=== PATIENT | female | born 1995 | race Caucasian/White ===

== ENCOUNTER 2017-07-26 18:39 | Emergency (ER) | payer BC ==
[2017-07-26 21:08] LABS: ABS Basophils 0 10^3/ul (0-0.2); ABS Eosinophils 0.1 10^3/ul (0-0.6); ABS Lymphocytes 2.1 10^3/ul (1.0-4.8); ABS Monocytes 0.4 10^3/ul (0-0.8); ABS Nucleated RBC 0 10^3/ul; Eosinophil % 1.8 % (0-6); Hematocrit 43 % (35-47); Hemoglobin 14.9 g/dl (12.0-16.0); Lymphocyte % 37.2 % (25-47); Mean Corpuscular HGB Conc 35 g/dl (31-36); Mean Corpuscular Hemoglobin 30 pg (27-31); Mean Corpuscular Volume 87 fL (80-97); Mean Platelet Volume 9.9 um3 (7.4-10.4); Nucleated Red Blood Cells % 0; Platelet Count 207 10^3/ul (150-450); Red Blood Count 4.88 10^6/ul (4.0-5.4); Red Cell Distribution Width 13 % (10.5-15); White Blood Count 5.6 10^3/ul (3.5-10.8)
[2017-07-26 21:35] LABS: INR 1.03 (0.77-1.02)
--- NOTE | 2017-07-26 21:40 | RAD ---
INDICATION: Chest pain COMPARISON: None. TECHNIQUE: Single AP portable view of the chest was obtained. FINDINGS: Image quality is compromised due to the relative inferiority of a portable chest x-ray. The heart and mediastinum exhibit normal size and contour. The lungs are grossly clear. There is no evidence of a large pleural effusion. Visualized bones are normal for the patient's age. IMPRESSION: No radiographic evidence for acute cardiopulmonary abnormality on this portable chest x-ray.
[2017-07-26 22:06] VITALS: BP 106/78
--- NOTE | 2017-07-27 14:14 | ED ---
Abril Olsen Julia, scribed for Tio Mack on 07/26/17 at 2040 . HPI Chest Pain - HPI Summary HPI Summary: This patient is a 22 year old F presenting to [facility] with a chief complaint of sudden chest pain with SOB and palpitations described as a grab lasting for 45 seconds occurring twice earlier today. Patient reports a dull ache after initial onset. Patient rates pain 2/10. Patient Patient states that she has had these symptoms before for the past year. She states the symptoms have never been this severe and usually occur while she is relaxing. She states previous EKGs were normal. - History of Current Complaint Chief Complaint: EDChestPainROMI Time Seen by Provider: 07/26/17 20:14 Hx Obtained From: Patient Onset/Duration: Started Hours Ago, Resolved Timing: Lasting Minutes Pain Intensity: 2 Pain Scale Used: 0-10 Numeric Chest Pain Radiates: No Character: Other: - "grab" Associated Signs and Symptoms: Positive: Chest Pain, Shortness of Breath, Lightheadedness, Palpitations - Allergy/Home Medications Allergies/Adverse Reactions: Allergies Allergy/AdvReac Type Severity Reaction Status Date / Time Sulfa (Sulfonamide Allergy Unknown Verified 07/26/17 19:04 Antibiotics) Reaction Details oral contraceptives Allergy Severe See Comment Uncoded 07/26/17 19:04 PMH/Surg Hx/FS Hx/Imm Hx EENT History: Denies: Hx Deafness Psychiatric History: Reports: Hx Anxiety, Hx Depression, Hx Bipolar Disorder Infectious Disease History: No Infectious Disease History: Denies: Traveled Outside the [place] in Last 30 Days - Family History Known Family History: Positive: Cardiac Disease - heart murmur - mother, no [place], Hypertension - Social History Occupation: Student Alcohol Use: Occasionally Substance Use Type: Reports: None Smoking Status (MU): Never Smoked Tobacco Review of Systems Positive: Palpitations, Chest Pain Positive: Shortness Of Breath All Other Systems Reviewed And Are Negative: Yes Physical Exam - Summary Physical Exam Summary: Appearance: Well appearing, no pain distress Skin: warm, dry, reflects adequate perfusion Head/face: normal Eyes: EOMI, LEE ENT: normal Neck: supple, non-tender Respiratory: CTA, breath sounds present Cardiovascular: RRR, pulses symmetrical Abdomen: non-tender, soft Bowel: present Musculoskeletal: normal, strength/ROM intact Neuro: normal, sensory motor intact, A&Ox3 Triage Information Reviewed: Yes Vital Signs On Initial Exam: Initial Vitals Temp Pulse Resp BP Pulse Ox 99.3 F 94 18 126/77 100 07/26/17 19:05 07/26/17 19:05 07/26/17 19:05 07/26/17 19:05 07/26/17 19:05 Vital Signs Reviewed: Yes Diagnostics - Vital Signs Vital Signs Temp Pulse Resp BP Pulse Ox 07/26/17 19:05 99.3 F 94 18 126/77 100 - Laboratory Lab Results: Lab Results 07/26/17 07/26/17 07/26/17 Range/Units 20:25 20:25 20:25 WBC 5.6 (3.5-10.8) 10^3/ul RBC 4.88 (4.0-5.4) 10^6/ul Hgb 14.9 (12.0-16.0) g/dl Hct 43 (35-47) % MCV 87 (80-97) fL MCH 30 (27-31) pg MCHC 35 (31-36) g/dl RDW 13 (10.5-15) % Plt Count 207 (150-450) 10^3/ul MPV 9.9 (7.4-10.4) um3 Neut % (Auto) 53.6 (38-83) % Lymph % (Auto) 37.2 (25-47) % [place] % (Auto) 6.6 (0-7) % Eos % (Auto) 1.8 (0-6) % Baso % (Auto) 0.8 (0-2) % Absolute Neuts (auto) 3.0 (1.5-7.7) 10^3/ul Absolute Lymphs (auto) 2.1 (1.0-4.8) 10^3/ul Absolute Monos (auto) 0.4 (0-0.8) 10^3/ul Absolute Eos (auto) 0.1 (0-0.6) 10^3/ul Absolute Basos (auto) 0 (0-0.2) 10^3/ul Absolute Nucleated RBC 0 10^3/ul Nucleated RBC % 0 INR (Anticoag Therapy) 1.03 H (0.77-1.02) APTT 33.7 (26.0-36.3) seconds D-Dimer, Quantitative < 200 (Less Than 230) ng/mL Sodium (133-145) mmol/L Potassium (3.5-5.0) mmol/L Chloride (101-111) mmol/L Carbon Dioxide (22-32) mmol/L Anion Gap (2-11) mmol/L BUN (6-24) mg/dL Creatinine (0.51-0.95) mg/dL Est GFR ( Amer) (>60) Est GFR (Non-Af Amer) (>60) BUN/Creatinine Ratio (8-20) Glucose (70-100) mg/dL Lactic Acid (0.5-2.0) mmol/L Calcium (8.6-10.3) mg/dL Total Bilirubin (0.2-1.0) mg/dL AST (13-39) U/L ALT (7-52) U/L Alkaline Phosphatase (34-104) U/L Troponin I (<0.04) ng/mL B-Natriuretic Peptide 8 ( - 100) pg/mL Total Protein (6.4-8.9) g/dL Albumin (3.2-5.2) g/dL Globulin (2-4) g/dL Albumin/Globulin Ratio (1-3) 07/26/17 07/26/17 Range/Units 20:25 20:25 WBC (3.5-10.8) 10^3/ul RBC (4.0-5.4) 10^6/ul Hgb (12.0-16.0) g/dl Hct (35-47) % MCV (80-97) fL MCH (27-31) pg MCHC (31-36) g/dl RDW (10.5-15) % Plt Count (150-450) 10^3/ul MPV (7.4-10.4) um3 Neut % (Auto) (38-83) % Lymph % (Auto) (25-47) % [place] % (Auto) (0-7) % Eos % (Auto) (0-6) % Baso % (Auto) (0-2) % Absolute Neuts (auto) (1.5-7.7) 10^3/ul Absolute Lymphs (auto) (1.0-4.8) 10^3/ul Absolute Monos (auto) (0-0.8) 10^3/ul Absolute Eos (auto) (0-0.6) 10^3/ul Absolute Basos (auto) (0-0.2) 10^3/ul Absolute Nucleated RBC 10^3/ul Nucleated RBC % INR (Anticoag Therapy) (0.77-1.02) APTT (26.0-36.3) seconds D-Dimer, Quantitative (Less Than 230) ng/mL Sodium 140 (133-145) mmol/L Potassium 3.9 (3.5-5.0) mmol/L Chloride 102 (101-111) mmol/L Carbon Dioxide 31 (22-32) mmol/L Anion Gap 7 (2-11) mmol/L BUN 12 (6-24) mg/dL Creatinine 0.91 (0.51-0.95) mg/dL Est GFR ( Amer) 97.7 (>60) Est GFR (Non-Af Amer) 76.0 (>60) BUN/Creatinine Ratio 13.2 (8-20) Glucose 54 L (70-100) mg/dL Lactic Acid 1.1 (0.5-2.0) mmol/L Calcium 10.0 (8.6-10.3) mg/dL Total Bilirubin 0.50 (0.2-1.0) mg/dL AST 20 (13-39) U/L ALT 11 (7-52) U/L Alkaline Phosphatase 47 (34-104) U/L Troponin I 0.00 (<0.04) ng/mL B-Natriuretic Peptide ( - 100) pg/mL Total Protein 7.5 (6.4-8.9) g/dL Albumin 4.9 (3.2-5.2) g/dL Globulin 2.6 (2-4) g/dL Albumin/Globulin Ratio 1.9 (1-3) Result Diagrams: 07/26/17 20:25 07/26/17 20:25 Lab Statement: Any lab studies that have been ordered have been reviewed, and results considered in the medical decision making process. - Radiology CXR Radiology Interpretation Completed By: Radiologist - No radiographic evidence for acute cardiopulmonary abnormality on this portable chest x-ray. ED Physician has reviewed this report. - EKG 18:41 Cardiac Rate: NL - at 95 BPM EKG Rhythm: Sinus Rhythm EKG Interpretation: no acute changes Re-Evaluation - Re-Evaluation 1 Comment: Results discussed with patient. Patient will be discharged. Chest Pain Course/Dx - Course Course Of Treatment: Patient presents with chest pain with SOB and palpitations described as a grab lasting for 45 seconds occurring twice earlier today. Patient reports a dull ache after initial onset. Patient states that she has had these symptoms before for the past year. She states the symptoms have never been this severe and usually occur while she is relaxing. She states previous EKGs were normal. A CXR and EKG are unremarkable. Lab results are unremarkable. Patient is discharged and referred to a stitcher set up operator automatic. - Chest Pain Differential Diagnosis/HQI/PQRI: Acute [place], Chest Wall, Lower Respiratory Infection, Pulmonary Embolism - Diagnoses Provider Diagnoses: Chest pain Discharge - Sign-Out/Discharge Documenting (check all that apply): Discharge - Discharge Plan Condition: Stable Disposition: HOME Patient Education Materials: Chest Pain (ED) Referrals: Florian Green MD [Medical Doctor] - 3 Days (Follow up with this stitcher set up operator automatic.) - Billing Disposition and Condition Condition: STABLE Disposition: HOME The documentation as recorded by the Abril corrales Julia accurately reflects the service I personally performed and the decisions made by , Tio Mack.
== END 2017-07-26 22:04 | disposition home or self-care (01) ==
LOC: ED 18:39
DX: R07.9 Chest pain, unspecified (principal); R06.02 Shortness of breath; R00.2 Palpitations; F41.9 Anxiety disorder, unspecified; F31.9 Bipolar disorder, unspecified; Z79.899 Other long term (current) drug therapy
CPT/HCPCS: 36415; 71045; 80053; 83605; 83880; 84484; 85025; 85379; 85610; 85730; 93005; 99284

== ENCOUNTER 2018-10-19 10:02 | Emergency (ER) | payer BC ==
[2018-10-19] MEDS ORDERED: NS 0.9% 1000 ML** 1,000 ML IV ONE (10:46)
--- NOTE | 2018-10-19 11:10 | ED ---
Abdominal Pain/Female - HPI Summary HPI Summary: The patient is a 23 y/o F presenting to [facility] with a chief complaint of sudden onset epigastric pain onset within the last hour. She reports she was at rest when the pain started. The pain began as a sharp and stabbing pain, but has relieved itself to a more dull pain that is currently rated 3/10 in severity. There are no aggravating oo alleviating factors. She attempted to use TUMS to relieve the pain, but the pain persisted. She additionally c/o nausea and sinus congestion. She denies vomiting. She notes that she had GERD episodes a few time when she was younger, but she hasn't had any flare ups recently. Hx of recurrent bronchitis. No related fhx. Nonsmoker, occasional EtOH, no substance use. LNMP: unknown due to IUD. - History of Current Complaint Chief Complaint: EDAbdPain Stated Complaint: ABDOMINAL PAIN PER PT Time Seen by Provider: 10/19/18 10:59 Hx Obtained From: Patient Onset/Duration: Sudden Onset, Lasting Minutes, Still Present Timing: Minutes Severity Initially: Severe Severity Currently: Mild Pain Intensity: 3 Pain Scale Used: 0-10 Numeric Location: Epigastric Radiates: No Character: Sharp - and stabbing (at onset), Dull - (currently) Aggravating Factor(s): Nothing Alleviating Factor(s): Nothing - Tums to no relief Associated Signs and Symptoms: Positive: Nausea, Other: - sinus congestion. Negative: Vomiting Allergies/Adverse Reactions: Allergies Allergy/AdvReac Type Severity Reaction Status Date / Time Sulfa (Sulfonamide Allergy Unknown Verified 10/19/18 10:13 Antibiotics) Reaction Details oral contraceptives Allergy Severe See Comment Uncoded 06/17/18 12:57 Home Medications: Home Medications lamoTRIgine TAB(*) [Lamictal TAB(*)] 75 mg PO BEDTIME 10/19/18 [History Confirmed 10/19/18] PMH/Surg Hx/FS Hx/Imm Hx Endocrine/Hematology History: Denies: Hx Diabetes Cardiovascular History: Denies: Hx Hypercholesterolemia, Hx Hypertension Respiratory History: Reports: Other Respiratory Problems/Disorders - Recurrent bronchitis Sensory History: Denies: Hx Deafness Psychiatric History: Reports: Hx Anxiety, Hx Depression, Hx Bipolar Disorder - Surgical History Surgical History: None Surgery Procedure, Year, and Place: none Infectious Disease History: No Infectious Disease History: Denies: Traveled Outside the [place] in Last 30 Days - Family History Known Family History: Positive: Cardiac Disease - heart murmur - mother, no [place], Hypertension Negative: Diabetes - Social History Alcohol Use: Occasionally Hx Substance Use: No Substance Use Type: Reports: None Hx Tobacco Use: No Smoking Status (MU): Never Smoked Tobacco Do You Chew or Dip Tobacco: No Have You Chewed or Dipped Tobacco in the LAST YEAR: No Have You Smoked in the Last Year: No Review of Systems Positive: Other - sinus congestion Positive: Abdominal Pain - epigastric, sharp and stabbing pain, Nausea. Negative: Vomiting All Other Systems Reviewed And Are Negative: Yes Physical Exam - Summary Physical Exam Summary: VITAL SIGNS: Reviewed. GENERAL: Patient is a well-developed and nourished female who is lying comfortable in the stretcher. Patient is not in any acute respiratory distress. HEAD AND FACE: Normocephalic and atraumatic. EYES: PERRLA, EOMI x 2, No injected conjunctiva. EARS: Hearing grossly intact. Ear canals and tympanic membranes are WNL. MOUTH: Oropharynx within normal limits. NECK: Supple, trachea is midline, no adenopathy, no JVD. CHEST: Symmetric, no tenderness at palpation LUNGS: Clear to auscultation bilaterally. No wheezing or crackles. CVS: RRR, S1 and S2 present, no murmurs or gallops appreciated. ABDOMEN: Soft, epigastric tenderness. No signs of distention. Positive bowel sounds. No rebound no guarding, and no masses palpated. No abdominal bruit or pulsations. EXTREMITIES: FROM in all major joints, no edema, no cyanosis or clubbing. NEURO: Alert and oriented x 3. No acute neurological deficits. Speech is normal. SKIN: Dry and warm. Triage Information Reviewed: Yes Vital Signs On Initial Exam: Initial Vitals Temp Pulse Resp BP Pulse Ox 98.9 F 93 16 124/82 98 10/19/18 10:11 10/19/18 10:11 10/19/18 10:11 10/19/18 10:11 10/19/18 10:11 Vital Signs Reviewed: Yes Diagnostics - Vital Signs Vital Signs Temp Pulse Resp BP Pulse Ox 10/19/18 10:11 98.9 F 93 16 124/82 98 - Laboratory Result Diagrams: 10/19/18 11:00 10/19/18 11:00 Lab Statement: Any lab studies that have been ordered have been reviewed, and results considered in the medical decision making process. - CT Abd/Pel CT CT Interpretation Completed By: Radiologist Summary of CT Findings: 1. 1.6 cm central water density lesion of the RIGHT ovary with some inward directed margins is most consistent with a partially decompressed follicular or hemorrhagic cyst. 2. The appendix is not visualized with absence of oral contrast and paucity of intra-abdominal fat limiting assessment. No compelling inflammatory change evident at the RIGHT lower quadrant. ED physician has reviewed this radiology report. Re-Evaluation - Re-Evaluation First Eval Re-Evaluation Time: 13:20 Change: Unchanged Comment: The patient is still experiencing pain. I ordered a CT Abd/Pel. Second Eval Re-Evaluation Time: 16:50 Change: Improved Comment: The patient is feeling better. We discussed discharge home. Abdominal Pain Fem Course/Dx - Course Course Of Treatment: The patient is a 23 y/o F presenting to [facility] with a chief complaint of sudden onset epigastric pain onset within the last hour. She reports she was at rest when the pain started. The pain began as a sharp and stabbing pain, but has relieved itself to a more dull pain that is currently rated 3/10 in severity. There are no aggravating oo alleviating factors. She attempted to use TUMS to relieve the pain, but the pain persisted. She additionally c/o nausea and sinus congestion. She denies vomiting. She notes that she had GERD episodes a few time when she was younger, but she hasn't had any flare ups recently. Hx of recurrent bronchitis. No related fhx. Nonsmoker, occasional EtOH, no substance use. LNMP: unknown due to IUD. Blood work without any significant abnormality except for hemoglobin of 16.4, calcium of 10.7, and beta hCG is negative. In the ED course, the patient was given IV fluids, she was given the GI cocktail however the symptoms continued with abdominal pain, therefore the patient was given Zofran for nausea and morphine for the pain. At this point I decided to her about the CT, which is still pending. Abdominopelvic CT impression: 1.6 cm central water density lesion of the right ovary with some inward nondirected margin is most consistent with a partially decompressed follicular or hemorrhagic cyst. The appendix is not visualized with the absence of oral contrast and possibly of the intra-abdominal fat limited assessment. No compelling inflammatory changes evident at the right lower quadrant. After the patient was given the morphine and Zofran, the symptoms have improved. The patient was complaining of epigastric pain, not lower abdominal pain; therefore have no suspicion for appendicitis. I discussed all the findings and test results with the patient. Patient was instructed to return to the emergency room immediately if any of the symptoms return worsens. Plan of care was discussed with the patient and understands and agrees. All questions were answered at patient satisfaction. There were no further complaints or concerns. Lung exam before discharge: CTA B/L. Good air exchange. No wheezing or crackles heard. CVS: S1 and S2 present. No murmurs appreciated. Patient is alert and oriented x 3. Patient is hemodynamically stable. Patient will be discharged home with follow up PCP in the next 2-3 days. - Diagnoses Provider Diagnoses: Epigastric pain Discharge - Sign-Out/Discharge Documenting (check all that apply): Patient Departure - Patient will be discharged home. Patient Received Moderate/Deep Sedation with Procedure: No - Discharge Plan Condition: Stable Disposition: HOME Prescriptions: Omeprazole CAP (NF) [Prilosec CAP* 20 MG] 20 mg PO DAILY #15 cap. Patient Education Materials: Epigastric Pain (ED) Referrals: [facility]ERR[facility] [Outside] - 3 Days Additional Instructions: Please take medications as prescribed. Follow up with your primary care provider in 2-3 days. RETURN TO THE EMERGENCY DEPARTMENT FOR ANY NEW OR WORSENING SYMPTOMS. - Billing Disposition and Condition Condition: STABLE Disposition: Home - Attestation Statements Document Initiated by Nicki: Yes Documenting Scribe: Yulissa Carrillo Provider For Whom Nicki is Documenting (Include Credential): MD Mary Puenteibe Attestation: Yulissa Olsen scribed for Dr. Bunny Turpin MD on 10/19/18 at 1651. Scribe Documentation Reviewed: Yes Provider Attestation: The documentation as recorded by the Yulissa corrales accurately reflects the service I personally performed and the decisions made by me, Dr. Bunny Turpin MD Status of Scribe Document: Ready
[2018-10-19 11:13] LABS: ABS Basophils 0.1 10^3/ul (0-0.2); ABS Eosinophils 0.2 10^3/ul (0-0.6); ABS Lymphocytes 1.5 10^3/ul (1.0-4.8); ABS Monocytes 0.4 10^3/ul (0-0.8); ABS Neutrophils 3.4 10^3/ul (1.5-7.7); Eosinophil % 3.2 %; Hematocrit 46 % (35-47); Hemoglobin 16.4 g/dL (12.0-16.0); Mean Corpuscular HGB Conc 36 g/dL (31-36); Mean Corpuscular Hemoglobin 31 pg (27-31); Mean Corpuscular Volume 86 fL (80-97); Mean Platelet Volume 9.4 fL (7.4-10.4); Nucleated Red Blood Cells % 0.1; Platelet Count 255 10^3/uL (150-450); Red Blood Count 5.34 10^6 /uL (3.70-4.87); Red Cell Distribution Width 13 % (10-15); White Blood Count 5.6 10^3/uL (3.5-10.8)
[2018-10-19] MEDS: Lidocaine 2% VISCOUS* 15 ML UDC PO ONE (11:35)
[2018-10-19] MEDS: Al Hydrox/Mg Hydrox/Simet LIQ* 30 ML UDC PO ONE (11:35)
[2018-10-19 11:47] LABS: ALT 18 U/L (7-52); AST 24 U/L (13-39); Albumin/Globulin Ratio 1.7 (1-3); Alkaline Phosphatase 74 U/L (34-104); Anion Gap 5 mmol/L (2-11); BUN/Creatinine Ratio 12.2 (8-20); Blood Urea Nitrogen 10 mg/dL (6-24); C Reactive Protein 1.12 mg/L (<8.01); CO2 Carbon Dioxide 31 mmol/L (22-32); Calcium 10.7 mg/dL (8.6-10.3); Chloride 103 mmol/L (101-111); EGFR African American 102.8 (>60); EGFR Non-African American 84.9 (>60); Globulin 2.9 g/dL (2-4); Glucose 89 mg/dL (70-100); Potassium 4.5 mmol/L (3.5-5.0); Sodium 139 mmol/L (135-145); Total Protein 7.9 g/dL (6.4-8.9)
[2018-10-19 11:51] LABS: HCG Pregnancy < 0.60 mIU/mL
[2018-10-19] MEDS: Ondansetron INJ* 2 MG/ML VIAL IV ONE (12:22)
[2018-10-19] MEDS: Morphine 4 MG/ML VIAL (1 ml) 4 MG/ML VIAL IV ONE (13:48)
[2018-10-19] MEDS: Iohexol 300* (CONTRAST) 10 ML SDV IV ONE (14:30)
[2018-10-19 16:46] VITALS: BP 107/65
== END 2018-10-19 16:58 | disposition home or self-care (01) ==
LOC: ED 10:02
DX: R10.13 Epigastric pain (principal); N83.9 Noninflammatory disorder of ovary, fallopian tube and broad ligament, unspecified
CPT/HCPCS: 36415; 74177; 80053; 83605; 83690; 84702; 85025; 86140; 96361; 96374; 96375; 99283; A9270-GY; J2270; J2405; Q9967

== ENCOUNTER 2018-11-06 10:51 | Emergency (ER) | payer BC ==
--- NOTE | 2018-11-06 11:08 | ED ---
Abdominal Pain/Female - HPI Summary HPI Summary: This patient is a 23 year old female presenting to [facility] with a chief complaint of epigastric pain 10 hours ago. The patient states it was sudden onset as she was walking and collapsed on the floor in pain in a position. She took 25 mg omeprazole. She says the pain severity has lessened and currently rates it 4/ 10 in severity. She was seen her 2 weeks ago for the same thing but did not follow up after her visit. The patient denies fever, nausea, vomiting, and diarrhea. - History of Current Complaint Chief Complaint: EDAbdPain Stated Complaint: ABD PAIN PER PT Time Seen by Provider: 11/06/18 11:01 Hx Obtained From: Patient Severity Initially: Severe Severity Currently: Mild Pain Intensity: 4 Pain Scale Used: 0-10 Numeric Location: Epigastric Allergies/Adverse Reactions: Allergies Allergy/AdvReac Type Severity Reaction Status Date / Time Sulfa (Sulfonamide Allergy Unknown Verified 11/06/18 10:58 Antibiotics) Reaction Details oral contraceptives Allergy Severe See Comment Uncoded 06/17/18 12:57 PMH/Surg Hx/FS Hx/Imm Hx Endocrine/Hematology History: Denies: Hx Diabetes Cardiovascular History: Denies: Hx Hypercholesterolemia, Hx Hypertension Respiratory History: Reports: Other Respiratory Problems/Disorders - Recurrent bronchitis Sensory History: Denies: Hx Deafness Psychiatric History: Reports: Hx Anxiety, Hx Depression, Hx Bipolar Disorder - Surgical History Surgery Procedure, Year, and Place: none Infectious Disease History: No Infectious Disease History: Denies: Traveled Outside the [place] in Last 30 Days - Family History Known Family History: Positive: Cardiac Disease - heart murmur - mother, no [place], Hypertension Negative: Diabetes - Social History Alcohol Use: Occasionally Hx Substance Use: No Substance Use Type: Reports: None Hx Tobacco Use: No Smoking Status (MU): Never Smoked Tobacco Have You Smoked in the Last Year: No Review of Systems Negative: Fever Positive: Abdominal Pain. Negative: Vomiting, Diarrhea, Nausea All Other Systems Reviewed And Are Negative: Yes Physical Exam - Summary Physical Exam Summary: VITAL SIGNS: Reviewed. GENERAL: Patient is a well-developed and nourished female who is lying comfortable in the stretcher. Patient is not in any acute respiratory distress. HEAD AND FACE: Normocephalic and atraumatic. EYES: PERRLA, EOMI x 2, No injected conjunctiva. EARS: Hearing grossly intact. Ear canals and tympanic membranes are WNL. MOUTH: Oropharynx within normal limits. NECK: Supple, trachea is midline, no adenopathy, no JVD. CHEST: Symmetric, no tenderness at palpation. LUNGS: Clear to auscultation bilaterally. No wheezing or crackles. CVS: RRR, S1 and S2 present, no murmurs or gallops appreciated. ABDOMEN: Soft, epigastric tenderness. No signs of distention. Positive bowel sounds. No rebound, no guarding, and no masses palpated. No abdominal bruit or pulsations. EXTREMITIES: FROM in all major joints, no edema, no cyanosis or clubbing. NEURO: Alert and oriented x 3. No acute neurological deficits. Speech is normal. SKIN: Dry and warm. Triage Information Reviewed: Yes Vital Signs On Initial Exam: Initial Vitals Temp Pulse Resp BP Pulse Ox 98.6 F 68 14 134/92 94 11/06/18 10:53 11/06/18 10:53 11/06/18 10:53 11/06/18 10:53 11/06/18 10:53 Vital Signs Reviewed: Yes Diagnostics - Vital Signs Vital Signs Temp Pulse Resp BP Pulse Ox 11/06/18 10:53 98.6 F 68 14 134/92 94 - Laboratory Result Diagrams: 11/06/18 11:27 11/06/18 11:26 Lab Statement: Any lab studies that have been ordered have been reviewed, and results considered in the medical decision making process. Abdominal Pain Fem Course/Dx - Course Course Of Treatment: This patient is a 23 year old female presenting to [facility] with a chief complaint of epigastric pain 10 hours ago. The patient states it was sudden onset as she was walking and collapsed on the floor in pain in a position. She took 25 mg omeprazole. She says the pain severity has lessened and currently rates it 4/10 in severity. She was seen her 2 weeks ago for the same thing but did not follow up after her visit. The patient denies fever, nausea, vomiting, and diarrhea. Blood tests without any significant abnormality. The patients symptoms resolve yesterday and today she improved. I discussed all the findings and test results with the patient. Patient was instructed to return to the emergency room immediately if any of the symptoms return worsens. Plan of care was discussed with the patient and understands and agrees. All questions were answered at patient satisfaction. There were no further complaints or concerns. Lung exam before discharge: CTA B/L. Good air exchange. No wheezing or crackles heard. CVS: S1 and S2 present. No murmurs appreciated. Patient is alert and oriented x 3. Patient is hemodynamically stable. Patient will be discharged home with follow up PCP in the next 2-3 days - Diagnoses Provider Diagnoses: Epigastric pain Discharge - Sign-Out/Discharge Documenting (check all that apply): Patient Departure - Discharge Patient Received Moderate/Deep Sedation with Procedure: No - Discharge Plan Condition: Stable Disposition: HOME Patient Education Materials: Epigastric Pain (ED) Additional Instructions: Return to ED with any new or worsening symptoms. - Billing Disposition and Condition Condition: STABLE Disposition: Home - Attestation Statements Document Initiated by Nicki: Yes Documenting Scribe: Ahsan Jacinto Provider For Whom Nicki is Documenting (Include Credential): Bunny Turpin MD Scribe Attestation: Ahsan Olsen scribed for Bunny Turpin MD on 11/06/18 at 2023. Scribe Documentation Reviewed: Yes Provider Attestation: The documentation as recorded by the Ahsan corrales accurately reflects the service I personally performed and the decisions made by Bunny piña MD Status of Scribe Document: Viewed
[2018-11-06] MEDS ORDERED: Lidocaine 2% VISCOUS* 15 ML UDC PO ONE (11:12)
[2018-11-06] MEDS ORDERED: Al Hydrox/Mg Hydrox/Simet LIQ* 30 ML UDC PO ONE (11:12)
[2018-11-06 11:32] LABS: ABS Eosinophils 0.1 10^3/ul (0-0.6); ABS Lymphocytes 1.4 10^3/ul (1.0-4.8); ABS Monocytes 0.2 10^3/ul (0-0.8); ABS Neutrophils 2.3 10^3/ul (1.5-7.7); Eosinophil % 2.9 %; Hematocrit 42 % (35-47); Hemoglobin 14.4 g/dL (12.0-16.0); Lymphocyte % 34.8 %; Mean Corpuscular HGB Conc 34 g/dL (31-36); Mean Corpuscular Hemoglobin 30 pg (27-31); Mean Corpuscular Volume 88 fL (80-97); Mean Platelet Volume 9.1 fL (7.4-10.4); Platelet Count 198 10^3/uL (150-450); Red Blood Count 4.74 10^6 /uL (3.70-4.87); Red Cell Distribution Width 12 % (10-15); White Blood Count 4.2 10^3/uL (3.5-10.8)
[2018-11-06 11:51] LABS: ALT 17 U/L (7-52); AST 21 U/L (13-39); Albumin 4.6 g/dL (3.2-5.2); Albumin/Globulin Ratio 1.9 (1-3); Alkaline Phosphatase 61 U/L (34-104); Anion Gap 4 mmol/L (2-11); BUN/Creatinine Ratio 13.3 (8-20); Blood Urea Nitrogen 10 mg/dL (6-24); C Reactive Protein < 1.00 mg/L (<8.01); CO2 Carbon Dioxide 31 mmol/L (22-32); Calcium 9.7 mg/dL (8.6-10.3); Chloride 106 mmol/L (101-111); EGFR African American 113.9 (>60); EGFR Non-African American 94.2 (>60); Globulin 2.4 g/dL (2-4); Glucose 92 mg/dL (70-100); Potassium 4.3 mmol/L (3.5-5.0); Sodium 141 mmol/L (135-145)
[2018-11-06 11:57] LABS: HCG Pregnancy < 0.60 mIU/mL
[2018-11-06 13:07] VITALS: BP 106/77
== END 2018-11-06 13:07 | disposition home or self-care (01) ==
LOC: ED 10:51
DX: R10.13 Epigastric pain (principal); Z88.2 Allergy status to sulfonamides; Z88.8 Allergy status to other drugs, medicaments and biological substances
CPT/HCPCS: 36415; 80053; 83605; 83690; 84702; 85025; 86140; 99283; A9270-GY